=== PATIENT | male | born 1945 | race Asian ===

== ENCOUNTER 2023-02-13 08:19 | Inpatient (IN) | payer MEDICARE, MEDICAID ==
[2023-02-13] VITALS (12 sets, daily range): BP systolic 128–152; BP diastolic 79–96
[~2023-02-13] VITALS: Ht 170.2 cm; Wt 70.2 kg
[~2023-02-13 08:19] MED LIST: AMLO1TAB22 PO; ASPI81CH49 PO; FURO40TA4 PO; GLIM2TAB PO; LOSA50TA12 PO; METF-370 OR; METO25TA36 PO; POTA10TA51 PO; PRAVASTATIN PO; SITA25TA3 PO
[2023-02-13] MEDS ORDERED: ANGIOMAX 250 MG VIAL IV ONE (08:34)
[2023-02-13] MEDS ORDERED: VERAPAMIL 2.5MG/ML INJ 2ML VIAL IV ONE (08:34)
[2023-02-13] MEDS ORDERED: HEPARIN SODIUM (PORCINE) 5000 UNITS/ML 1ML VIAL ONE (08:34)
[2023-02-13] MEDS ORDERED: fentaNYL CITRATE 100 MCG/2 ML VL ONE (08:34)
[2023-02-13] MEDS ORDERED: LIDOCAINE 2%HCL (LOCAL ANESTH.) INJ 20ML MDV ONE (08:35)
[2023-02-13] MEDS ORDERED: IODIXANOL 320MG/ML 100ML BTL IV ONE ×2 (08:35→09:07)
[2023-02-13] MEDS ORDERED: SODIUM CHL 0.9% 50 ML ONE (08:35)
[2023-02-13] MEDS ORDERED: MIDAZOLAM HCL 2MG/2ML 2ml VIAL (1mg/ml) ONE (08:35)
[2023-02-13] MEDS ORDERED: ONDANSETRON HCL 4 MG/2 ML VIAL IV ONE (08:45)
[2023-02-13] MEDS ORDERED: MORPHINE SULFATE INJ 2 MG/ml SYRG IV ONE (08:45)
[2023-02-13] MEDS ORDERED: HEPARIN SODIUM (PORCINE) 5000 UNITS/ML 1ML VIAL IV ONE (08:45)
[2023-02-13 08:57] LABS: Basophils # (auto) 0.1 10 ^3/uL (0-0.2); Basophils % (auto) 0.8 % (0.0-2.0); Eosinophils # (auto) 0.7 10 ^3/uL (0-0.8); Eosinophils % (auto) 11.2 % (0.0-7.0); Hematocrit 42.8 % (41.0-53.0); Hemoglobin 14.1 g/dL (13.5-17.5); Lymphocytes # (auto) 2.4 10 ^3/uL (0.4-5.4); Lymphocytes % (auto) 37.4 % (10.0-50.0); Mean Corpuscular Hemoglobin 28.7 pg (28.0-32.0); Mean Corpuscular Hgb Conc. 32.9 g/dL (32.0-36.0); Mean Corpuscular Volume 87.2 fL (80.0-100.0); Monocytes # (auto) 0.5 10 ^3/uL (0-1.3); Monocytes % (auto) 7.5 % (0.0-12.0); Neutrophils # (auto) 2.8 10 ^3/uL (1.6-8.6); Neutrophils % (auto) 43.1 % (37.0-80.0); Red Cell Distribution Width 14.1 % (11.8-14.3); White Blood Cell 6.5 10^3/uL (4.4-10.8)
[2023-02-13 09:12] LABS: Albumin 3.7 g/dL (3.4-5.0); Calcium 8.8 mg/dL (8.5-10.1)
[2023-02-13] MEDS ORDERED: ATROPINE SULF 1 MG/10ml SYR ONE (09:13)
[2023-02-13 09:15] LABS: BUN/Creatinine Ratio 13.3 (10.0-20.0); Bilirubin, Total 0.3 mg/dL (0.2-1.0); Total Protein 7.8 g/dL (6.4-8.2)
[2023-02-13 09:16] LABS: Partial Thromboplastin Time 26.8 sec (24.6-33.4)
[2023-02-13] MEDS ORDERED: EPTIFIBATIDE INJ (2MG/ML) 10ML VIAL IV ONE (09:18)
[2023-02-13] MEDS ORDERED: LIDOCAINE HCL 100 MG/5ML (2%) SYRG INJ IV ONE (09:20)
[2023-02-13] MEDS ORDERED: ASPirin 81 mg TAB ONE (09:25)
[2023-02-13] MEDS ORDERED: TICAGRELOR 90 MG TAB ONE (09:26)
[2023-02-13] MEDS ORDERED: SODIUM CHLORIDE 0.9% 1,000 ML IV ONE (09:45)
[2023-02-13] MEDS ORDERED: NITROGLYCERIN 0.4 MG SL TAB SL PRN (09:45)
[2023-02-13] MEDS ORDERED: MORPHINE SULFATE INJ 2 MG/ml SYRG IV PRN ×2 (09:45→17:00)
[2023-02-13] MEDS: ATORVASTATIN 20 MG TAB PO SCH (11:00)
[2023-02-13] MEDS ORDERED: DEXTROSE (50%) 50ML SYRG IV PRN (17:00)
[2023-02-13] MEDS ORDERED: ONDANSETRON HCL 4 MG/2 ML VIAL IV PRN (17:00)
[2023-02-13] MEDS ORDERED: ACETAMINOPHEN 500 MG TAB PO PRN (17:00)
[2023-02-13] MEDS ORDERED: HYDROcodone-ACET 5/325MG TAB PO PRN (17:00)
[2023-02-13] MEDS ORDERED: DOCUSATE SOD 100 MG CAP PO PRN (17:00)
[2023-02-13] MEDS: TICAGRELOR 90 MG TAB PO SCH ×2 (18:30→22:06)
[2023-02-13] MEDS: ACCU-CHEK COMFORT CURVE STRIP VI SCH ×2 (18:42→22:05)
[2023-02-13] MEDS: InsuLIN REG 1unit/0.01ml Soln (100units/ml) SC SCH ×2 (18:45→22:06)
[2023-02-14 05:00] VITALS: BP 139/92
[2023-02-14 06:09] LABS: Albumin 3.6 g/dL (3.4-5.0)
[2023-02-14 06:17] LABS: BUN/Creatinine Ratio 14.3 (10.0-20.0); Bilirubin, Total 0.8 mg/dL (0.2-1.0); Calcium 8.8 mg/dL (8.5-10.1); Total Protein 7.9 g/dL (6.4-8.2)
[2023-02-14] MEDS: ACCU-CHEK COMFORT CURVE STRIP VI SCH ×4 (06:19→21:43)
[2023-02-14 06:20] LABS: Basophils # (auto) 0.1 10 ^3/uL (0-0.2); Basophils % (auto) 0.6 % (0.0-2.0); Eosinophils # (auto) 0.6 10 ^3/uL (0-0.8); Eosinophils % (auto) 5.3 % (0.0-7.0); Hematocrit 45.6 % (41.0-53.0); Hemoglobin 15.2 g/dL (13.5-17.5); Lymphocytes # (auto) 2.2 10 ^3/uL (0.4-5.4); Lymphocytes % (auto) 20.2 % (10.0-50.0); Mean Corpuscular Hemoglobin 29.7 pg (28.0-32.0); Mean Corpuscular Hgb Conc. 33.4 g/dL (32.0-36.0); Mean Corpuscular Volume 89.1 fL (80.0-100.0); Monocytes # (auto) 0.8 10 ^3/uL (0-1.3); Monocytes % (auto) 7.1 % (0.0-12.0); Neutrophils # (auto) 7.1 10 ^3/uL (1.6-8.6); Neutrophils % (auto) 66.8 % (37.0-80.0); Red Blood Cells 5.12 10^6/uL (4.5-5.90); Red Cell Distribution Width 14.2 % (11.8-14.3); White Blood Cell 10.7 10^3/uL (4.4-10.8)
[2023-02-14] MEDS: InsuLIN REG 1unit/0.01ml Soln (100units/ml) SC SCH ×4 (06:22→21:52)
[2023-02-14 09:00] VITALS: BP 141/90
[2023-02-14] MEDS ORDERED: METOPROLOL SUCCINATE XL 50 MG TAB PO SCH (10:00)
[2023-02-14] MEDS: ASPirin 81 mg TAB PO SCH (10:53)
[2023-02-14] MEDS: TICAGRELOR 90 MG TAB PO SCH ×2 (10:54→21:42)
[2023-02-14] MEDS: ATORVASTATIN 20 MG TAB PO SCH (10:54)
[2023-02-14 13:00] VITALS: BP 129/85
[2023-02-14 22:00] VITALS: BP 130/81
[2023-02-15 05:00] VITALS: BP 118/73
[2023-02-15] MEDS: ACCU-CHEK COMFORT CURVE STRIP VI SCH ×2 (06:08→13:30)
[2023-02-15] MEDS: InsuLIN REG 1unit/0.01ml Soln (100units/ml) SC SCH ×2 (06:17→13:32)
[2023-02-15 09:23] VITALS: BP 125/84
[2023-02-15] MEDS ORDERED: METOPROLOL SUCCINATE XL 50 MG TAB PO SCH (10:00)
[2023-02-15] MEDS: ASPirin 81 mg TAB PO SCH (10:26)
[2023-02-15] MEDS: TICAGRELOR 90 MG TAB PO SCH (10:27)
[2023-02-15] MEDS: ATORVASTATIN 20 MG TAB PO SCH (10:27)
[2023-02-15] MEDS ORDERED: SACU1TAB PO (11:23)
[2023-02-15] MEDS ORDERED: TICA90TA PO (11:23)
[2023-02-15 12:32] VITALS: BP 125/84
[2023-02-15 13:00] VITALS: BP 131/84
[2023-02-15] MEDS ORDERED: SACUBITRIL-VALSARTAN 24mg/26mg TAB PO SCH (22:00)
== END 2023-02-15 15:25 | disposition home or self-care (01) | DRG 174 ==
LOC: EDBD 08:19 → ER 08:19 → TELE 09:40 → TELE-WESTW 13:25
PROVIDERS: ADMIT Specialist; ATTEND Nurse Practitioner Acute Care
PROC: B211YZZ Fluoroscopy of Multiple Coronary Arteries using Other Contrast (ICD-10-PCS; principal; 2023-02-13)
PROC: 027034Z Dilation of Coronary Artery, One Artery with Drug-eluting Intraluminal Device, Percutaneous Approach (ICD-10-PCS; 2023-02-13)
PROC: 4A023N7 Measurement of Cardiac Sampling and Pressure, Left Heart, Percutaneous Approach (ICD-10-PCS; 2023-02-13)
DX: I21.09 ST elevation (STEMI) myocardial infarction involving other coronary artery of anterior wall (principal); I50.21 Acute systolic (congestive) heart failure; I11.0 Hypertensive heart disease with heart failure; E11.9 Type 2 diabetes mellitus without complications; E78.5 Hyperlipidemia, unspecified; I25.10 Atherosclerotic heart disease of native coronary artery without angina pectoris; Z79.02 Long term (current) use of antithrombotics/antiplatelets; Z90.49 Acquired absence of other specified parts of digestive tract
CPT/HCPCS: 36415; 71045; 76937; 80053; 80061; 82962; 83036; 83880; 84484; 85025; 85610; 85730; 93005; 93306; 96360; 99152; 99153; G0378; J1815; J2250; Q9967

== ENCOUNTER 2023-10-29 10:06 | Emergency (ER) | payer MEDICARE, MEDICAID ==
[~2023-10-29] VITALS: Ht 160 cm; Wt 75.3 kg
[~2023-10-29 10:06] MED LIST changes: +SACU1TAB PO; +TICA90TA PO
[2023-10-29 11:06] VITALS: BP 163/90; PULSE 81; RESP 18; O2SAT 98
[2023-10-29] MEDS ORDERED: cloNIDine HCL 0.1 MG TAB PO ONE (11:15)
[2023-10-29 13:00] LABS: Rapid Influenza A Negative (Negative); Rapid Influenza B Negative (Negative)
[2023-10-29 13:01] LABS: COVID19 ANTIGEN SOFIA FIA NEGATIVE (NEGATIVE)
[2023-10-29] MEDS ORDERED: AMLO1TAB23 PO (13:20)
[2023-10-29 13:22] VITALS: TEMP 98.7
[2023-10-29] MEDS: ACETAMINOPHEN 500 MG TAB PO ONE (13:22)
== END 2023-10-29 13:27 | disposition home or self-care (01) ==
LOC: ER 10:06
DX: I10 Essential (primary) hypertension (principal); E11.9 Type 2 diabetes mellitus without complications; I25.10 Atherosclerotic heart disease of native coronary artery without angina pectoris; Z90.49 Acquired absence of other specified parts of digestive tract; Z79.82 Long term (current) use of aspirin; Z79.899 Other long term (current) drug therapy; Z20.822 Contact with and (suspected) exposure to COVID-19
CPT/HCPCS: 36415; 87426; 87804